=== PATIENT | female | born 1970 | race Caucasian/White ===

== ENCOUNTER 2017-02-07 01:42 | Emergency (ER) | payer OTHER ==
[~2017-02-07] VITALS: Ht 162.6 cm; Wt 78.7 kg
[2017-02-07] MEDS ORDERED: LIDOCAINE700 MG TP (03:50)
[2017-02-07] MEDS ORDERED: FLEXERIL10 MG PO (03:50)
[2017-02-07] MEDS ORDERED: MOTRIN600 MG PO (03:50)
[2017-02-07 04:10] VITALS: BP 146/100
== END 2017-02-07 04:11 | disposition home or self-care (01) ==
LOC: EME 01:42
DX: M43.6 Torticollis (principal); S09.8XXA Other specified injuries of head, initial encounter; V49.60XA Unspecified car occupant injured in collision with unspecified motor vehicles in traffic accident, initial encounter; Y92.410 Unspecified street and highway as the place of occurrence of the external cause
CPT/HCPCS: 70450; 72125; 99281; 99284